=== PATIENT | female | born 1945 | race Caucasian/White ===

== ENCOUNTER 2019-12-24 13:17 | Outpatient (CLI) | payer MEDICARE, SELFPAY ==
--- NOTE | 2019-12-24 13:36 | XR_ITS ---
WS: [id number] SCREENING DEXA SCAN [facility] CLINICAL INFORMATION: ASYMPTOMATIC MENOPAUSAL STATE, POST MENOPAUSAL COMPARISON: None. FINDINGS: The L1-L4 bone mineral density measures 0.780 g/cm2. This corresponds to a T score score of -3.3 and Z score of -1.0. Left femoral neck bone mineral density measures 0.591 g/cm2. This corresponds to a T score of -3.3 an d Z score of -1.3. Right femoral neck bone mineral density measures 0.639 g/cm2. This corresponds to a T score -2.9of an d Z score of -0.9. Mean femoral neck bone mineral density measures 0.615 g/cm2. This corresponds to a T score of -3.1 an d Z score of -1.1. XR/XR DEXA axial skeleton* [id number] IMPRESSION: Osteoporosis Patient's FRAX calculated 10 year probability for major osteoporotic fracture i s 33.8 % and osteoporotic hip fracture is 15.8%.
== END 2019-12-24 13:18 | disposition home or self-care (01) ==
LOC: RADWPI 13:27
PROVIDERS: Family Provider Chiropractor Orthopedic; PCP Nurse Practitioner; Visit Provider Nurse Practitioner
DX: Z78.0 Asymptomatic menopausal state (principal)
CPT/HCPCS: 77080

== ENCOUNTER 2020-01-08 10:30 | Outpatient (CLI) | payer MEDICARE, SELFPAY ==
--- NOTE | 2020-01-08 10:31 | MR_ITS ---
WS: [id number] MRI THORACIC SPINE WITHOUT CONTRAST TECHNIQUE: Sagittal T1, T2 and STIR imaging. Axial T2 imaging. Noncontrast imaging obtained. CLINICAL INFORMATION: CHRONIC BACK PAIN;DORSALGIA COMPARISON: None. FINDINGS: Mild thoracolumbar curve. Mild thoracic kyphosis. Compression fracture inferior endplate T12 with ant erior wedging at this level. Minimal retropulsion of the posterior inferior cortex with slight efface ment of ventral thecal sac. No significant central canal stenosis. Cord signal is normal. Persistent edema along the fracture cleft in the T12 vertebral body with loss of approximately 60% vertebral bod y height anteriorly. Pedicles appear intact. No other compression fractures. A few Schmorl's nodes in the upper and mid thoracic spine. Normal caliber thoracic aorta. Partially visualized left renal cyst measuring 13 mm. Moderate central canal stenosis in cervical spine seen on the [employer] imaging at C3-C5. MR/MR thoracic spin wo con* [id number] IMPRESSION: 1. Again seen is the compression fractures inferior endplate T12 with anterior wedging. This is not significantly changed since the prior CT . 2. Persistent mild edema in the T12 vertebral body along the fracture cleft. M inimal retropulsion of the posterior inferior cortex with slight effacement of ventral thecal sac. 3. No significant central canal stenosis. 4. Cord signal is normal. 5. No other compression fractures. 6. Moderate central canal stenosis in the cervical spine seen on the [employer] phil ging. This can be further evaluated with cervical spine MRI.
--- NOTE | 2020-01-08 10:31 | MR_ITS ---
WS: [id number] MRI LUMBAR SPINE NONCONTRAST TECHNIQUE: Sagittal T1, T2 and STIR imaging. Axial T1 and T2 imaging. CLINICAL INFORMATION: CHRONIC BACK PAIN;DORSALGIA COMPARISON: None. FINDINGS: Mild lumbar curve. Compression of the inferior endplate T12 is stable in appearance since the prior C T abdomen pelvis October 23, 2019. Persistent fracture cleft with edema along the mid and anterior v ertebral body. Anterior wedging. Loss of approximately 60% vertebral body height anteriorly. Minimal retropulsion of the posterior inferior cortex. No significant central canal stenosis. No other compre ssion fractures. L1-L2: Mild annular bulging. Mild facet arthropathy. Spinal canal and foramen are patent. L2-L3: Mild annular bulging with narrowing of the subarticular recess bilaterally. Encroachment trave rsing L3 nerve roots. Moderate facet arthropathy. Mild right and no significant left foraminal narrow ing. L3-L4: Mild disc bulging with slight effacement of ventral thecal sac. Moderate facet arthropathy. Mi ld right and no significant left foraminal narrowing. L4-L5: Tiny left pericentral disc herniation with slight inferior migration of disc material. Slight effacement of ventral thecal sac. Minimal narrowing of the left subarticular recess. Spinal canal is patent. Mild left and no significant right foraminal narrowing. Mild to moderate facet arthropathy. L5-S1: Mild disc bulging with narrowing of the left subarticular recess. Moderate facet arthropathy. Mild to moderate left and no significant right foraminal narrowing. Moderate facet arthropathy. Left renal cyst measuring 2.4 CM. Tarlov cysts in the sacrum. Moderate central canal stenosis C3-C4 a nd C4-C5 seen on the [employer] [facility]. Suggestion of a small amount of signal in the cervical cord. Osvaldo mmend further evaluation with cervical spine MRI. MR/MR lumbar spine wo con* [id number] IMPRESSION: 1. Again seen is the compression inferior endplate T12 with anterior wedging. This is unchanged since 2019. 2. No new compression fractures. 3. No high-grade central canal stenosis. 4. Mild central canal stenosis L2-L3 and L3-L4 with slight narrowing of the blake barticular recess. 5. Tiny left pericentral disc herniation L4-5 with minimal narrowing of the le ft subarticular recess. 6. Mild to moderate bony foraminal narrowing worse at right L3-4, left L4-5, a nd left L5-S1. 7. Advanced facet arthropathy L5-S1 worse in the left. 8. Moderate central canal stenosis in the cervical spine seen on the [employer] phil [facility]. Subtle equivocal signal in the cervical cord. Recommend further evaluatio n with cervical spine MRI.
== END 2020-01-08 10:31 | disposition home or self-care (01) ==
LOC: RADSHAW 10:30
PROVIDERS: Family Provider Chiropractor Orthopedic; PCP Nurse Practitioner; Visit Provider Nurse Practitioner
DX: G89.29 Other chronic pain (principal); M48.54XA Collapsed vertebra, not elsewhere classified, thoracic region, initial encounter for fracture; X58.XXXA Exposure to other specified factors, initial encounter; M48.02 Spinal stenosis, cervical region; M48.061 Spinal stenosis, lumbar region without neurogenic claudication
CPT/HCPCS: 72146; 72148